=== PATIENT | female | born 1975 | race Two or more races ===

== ENCOUNTER 2020-12-20 08:00 | Outpatient (CLI) | payer OTHER ==
[2020-12-20] MEDS ORDERED: Birth control PO (15:23)
[2020-12-20] MEDS ORDERED: MULT-658 PO (15:23)
[2020-12-20] MEDS ORDERED: ALBU90AE INH (15:23)
== END 2020-12-20 23:59 | disposition home or self-care (01) ==
LOC: STAR 08:00
PROVIDERS: ATTEND Obstetrics & Gynecology
DX: Z01.812 Encounter for preprocedural laboratory examination (principal); Z20.822 Contact with and (suspected) exposure to COVID-19
CPT/HCPCS: 36415; 80053; 84703; 85025; 93005; U0003

== ENCOUNTER 2020-12-22 12:00 | Inpatient (IN) | payer OTHER ==
[2020-12-20 15:50] LABS: ALANINE AMINOTRANSFERASE 17 U/L (12-78); ALBUMIN 3.6 g/dL (3.4-5.0); ANION GAP 7 mmol/L (5-15); CALCIUM 9.3 mg/dL (8.5-10.1); CHLORIDE 109 mmol/L (98-107); CREATININE 0.62 mg/dL (0.55-1.02)
[2020-12-20 15:51] LABS: MEAN CORPUSCULAR HEMOGLOBIN 20.2 pg (27.0-34.8); MEAN CORPUSCULAR HGB CONC 30.5 g/dL (32.4-35.8); MEAN PLATELET VOLUME 7.7 fL (7.4-10.4); PLATELET COUNT 546 x10^3/uL (130-400); RED BLOOD COUNT 3.84 x10^6/uL (3.82-5.3); RED CELL DISTRIBUTION WIDTH 19.7 % (9.6-15.2)
[2020-12-20 15:54] LABS: ALKALINE PHOSPHATASE 54 U/L (45-117); BILIRUBIN,TOTAL 0.2 mg/dL (0.2-1.0); TOTAL PROTEIN 7.4 g/dL (6.4-8.2)
[2020-12-20 17:48] LABS: MD YES
[2020-12-20 17:51] LABS: BAND#(MANUAL) 0.09 x10^3/uL; BANDS%(MANUAL) 1 % (0-7); BASOS#(MANUAL) 0.09 x10^3/uL (0-0.1); BASOS% (MANUAL) 1 % (0-1); LYMPHS% (MANUAL) 29 % (22-44); MONOS#(MANUAL) 0.28 x10^3/uL (0.3-2.7); MONOS% (MANUAL) 3 % (2-9); SEG#(MANUAL) 6.14 x10^3/uL (1.8-6.8); SEGS% (MANUAL) 66 % (42-75)
[2020-12-20 17:52] LABS: ANISOCYTOSIS 1+; HYPOCHROMIA 2+; POLYCHROMASIA 1+
[2020-12-20 17:53] LABS: <PLATELET ESTIMATE> INCREASED; <PLT MORPHOLOGY> NORMAL PLT MORPH; MICROCYTOSIS 2+; OVALOCYTES 1+
[~2020-12-22] VITALS: Ht 157.5 cm; Wt 105.3 kg
[~2020-12-22 12:00] MED LIST: ALBU90AE INH; Birth control PO; MULT-658 PO
[2021-01-25 10:37] VITALS: BP 135/86
[2021-01-25] MEDS ORDERED: [UNRECOGNIZED DRUG - CODE] SQ (10:42)
[2021-01-25] MEDS ORDERED: FERR-46 PO (10:42)
[2021-01-25 10:43] LABS: HCG UR SG 1.024 (1.003-1.030)
[2021-01-25] MEDS ORDERED: LACTATED RINGERS 1,000 ML IV SCH (11:00)
[2021-01-25] MEDS ORDERED: CHLORHEXIDINE 15 ML UDC PO ONE (11:00)
[2021-01-25] MEDS ORDERED: FLUORESCEIN SODIUM 500 MG/5 ML ONE (11:55)
[2021-01-25] MEDS ORDERED: MIDAZOLAM 1 MG/ML, 2ML ONE (12:18)
[2021-01-25] MEDS ORDERED: FENTANYL PF 250 MCG/5ML ONE (12:18)
[2021-01-25] MEDS ORDERED: OXYcodone 5 MG/5 ML ORAL.SOL UDC PO PRN (13:00)
[2021-01-25] MEDS ORDERED: HYDROmorphone 1 MG/ML, 1ML INJ ONE ×3 (13:00→15:03)
[2021-01-25] MEDS ORDERED: ALBUTEROL SULFATE 2.5 MG/3 ML NPPB PRN (13:00)
[2021-01-25] MEDS ORDERED: hydrALAzine 20 MG/ML, 1ML IV PRN (13:00)
[2021-01-25] MEDS ORDERED: MEPERIDINE/PF 25MG/0.5ML IVPush PRN (13:00)
[2021-01-25] MEDS ORDERED: LABETALOL 5MG/ML, 20ML IV PRN (13:00)
[2021-01-25] MEDS ORDERED: LORazepam 2 MG/ML, 1ML IVPush PRN (13:00)
[2021-01-25] MEDS ORDERED: HALOPERIDOL 5 MG/ML IV PRN (13:00)
[2021-01-25] MEDS ORDERED: PROMETHAZINE 25 MG/ML, 1ML IVPush PRN (13:00)
[2021-01-25] MEDS ORDERED: PROMETHAZINE 25 MG SUPP PR PRN (13:00)
[2021-01-25] MEDS ORDERED: ACETAMINOPHEN 325 MG TABLET PO PRN ×3 (13:00→16:30)
[2021-01-25] MEDS ORDERED: ONDANSETRON 2MG/ML, 2ML IVPush PRN (13:00)
[2021-01-25] MEDS ORDERED: METHOCARBAMOL 1,000 MG in DEXTROSE 5% 100 ML IV PRN (13:00)
[2021-01-25] MEDS ORDERED: ROCURONIUM 10MG/ML,5ML ONE (13:17)
[2021-01-25] MEDS ORDERED: ONDANSETRON 2MG/ML, 2ML ONE (13:17)
[2021-01-25] MEDS ORDERED: CEFAZOLIN 1,000 MG ONE (13:17)
[2021-01-25] MEDS ORDERED: NEOSTIGMINE 1 MG/ML, 10ML ONE (13:17)
[2021-01-25] MEDS ORDERED: PROPOFOL 10 MG/ML, 20ML ONE (13:17)
[2021-01-25] MEDS ORDERED: SUCCINYLCHOLINE 20 MG/ML, 10ML ONE (13:17)
[2021-01-25] MEDS ORDERED: GLYCOPYRROLATE 0.2MG/1ML, 5ML ONE (13:17)
[2021-01-25] MEDS ORDERED: DEXAMETHASONE 4 MG/ML, 1ML ONE (13:17)
[2021-01-25] MEDS ORDERED: FENTANYL PF 100 MCG/2ML ONE (14:17)
[2021-01-25] MEDS: FENTANYL PF 100 MCG/2ML IV PRN ×3 (14:21→14:55)
[2021-01-25] MEDS ORDERED: OXYcodone 5 MG/5 ML ORAL.SOL UDC ONE (15:01)
[2021-01-25] MEDS: HYDROmorphone 1 MG/ML, 1ML INJ IVPush PRN ×2 (15:05→15:20)
[2021-01-25] MEDS ORDERED: ACETAMINOPHEN 650 MG SUPP PR PRN ×2 (16:30)
[2021-01-25] MEDS ORDERED: morphine SULFATE 10 MG/ML, 1ML IV PRN (16:30)
[2021-01-25] MEDS: D5%-LACTATED RINGERS 1,000 ML IV SCH (16:30)
[2021-01-25] MEDS ORDERED: ONDANSETRON 2MG/ML, 2ML IV PRN (16:30)
[2021-01-25] MEDS ORDERED: MEPERIDINE/PF 100 MG/ML IM PRN (16:30)
[2021-01-25] MEDS: OXYcodone/APAP 5/325MG TABLET PO PRN (16:37)
[2021-01-25 17:56] LABS: BASOPHILS % (AUTO) 0 % (0-1); EOSINOPHILS % (AUTO) 0 % (1-7); LYMPHOCYTES % (AUTO) 3 % (22-44); MEAN CORPUSCULAR HEMOGLOBIN 23.6 pg (27.0-34.8); MEAN CORPUSCULAR HGB CONC 31.8 g/dL (32.4-35.8); MEAN PLATELET VOLUME 8.6 fL (7.4-10.4); MONOCYTES % (AUTO) 1 % (2-9); NEUTROPHILS % (AUTO) 96 % (42-75); PLATELET COUNT 293 x10^3/uL (130-400); RED BLOOD COUNT 4.95 x10^6/uL (3.82-5.3); RED CELL DISTRIBUTION WIDTH 33.3 % (9.6-15.2)
[2021-01-25 18:06] LABS: TROPONIN I < 0.015 ng/mL (0.000-0.045)
[2021-01-25 18:39] LABS: ALANINE AMINOTRANSFERASE 25 U/L (12-78); ALBUMIN 3.9 g/dL (3.4-5.0); ANION GAP 9 mmol/L (5-15); CHLORIDE 108 mmol/L (98-107); CREATININE 0.62 mg/dL (0.55-1.02)
[2021-01-25 18:41] VITALS: BP 151/79
[2021-01-25 18:42] LABS: ALKALINE PHOSPHATASE 57 U/L (45-117); BILIRUBIN,TOTAL 0.3 mg/dL (0.2-1.0); TOTAL PROTEIN 7.3 g/dL (6.4-8.2)
[2021-01-25 18:59] LABS: MD SCAN
[2021-01-25] MEDS ORDERED: POTASSIUM CHLORIDE 20 MEQ TAB.ER.PRT PO ONE (19:00)
[2021-01-25] MEDS ORDERED: ALBUTEROL HFA 90 MCG/SPRAY INH PRN (19:00)
[2021-01-25] MEDS: SENNA/DOCUSATE TABLET PO SCH (21:00)
[2021-01-25] MEDS: DOCUSATE 100 MG CAPSULE PO SCH (21:00)
[2021-01-25] MEDS: SIMETHICONE 80 MG CHEW TAB PO SCH (21:05)
[2021-01-25] MEDS: IBUPROFEN 600 MG TABLET PO SCH (21:06)
[2021-01-25 21:54] LABS: MICROSCOPIC NOT IND
[2021-01-25] MEDS ORDERED: OMNIPAQUE 350 MG/ML, 75ML BOTTLE ONE (22:09)
[2021-01-26 00:07] VITALS: BP 128/75
[2021-01-26] MEDS: D5%-LACTATED RINGERS 1,000 ML IV SCH (00:31)
[2021-01-26 00:45] LABS: TROPONIN I < 0.015 ng/mL (0.000-0.045)
[2021-01-26] MEDS: OXYcodone/APAP 5/325MG TABLET PO PRN ×3 (01:20→21:17)
[2021-01-26 03:49] VITALS: BP 129/76
[2021-01-26] MEDS: IBUPROFEN 600 MG TABLET PO SCH ×4 (05:25→21:18)
[2021-01-26 06:23] LABS: BASOPHILS % (AUTO) 0 % (0-1); EOSINOPHILS % (AUTO) 0 % (1-7); LYMPHOCYTES % (AUTO) 8 % (22-44); MEAN CORPUSCULAR HEMOGLOBIN 23.7 pg (27.0-34.8); MEAN CORPUSCULAR HGB CONC 31.9 g/dL (32.4-35.8); MEAN PLATELET VOLUME 8.5 fL (7.4-10.4); MONOCYTES % (AUTO) 7 % (2-9); NEUTROPHILS % (AUTO) 85 % (42-75); PLATELET COUNT 316 x10^3/uL (130-400); RED CELL DISTRIBUTION WIDTH 33.3 % (9.6-15.2)
[2021-01-26 06:38] LABS: TROPONIN I < 0.015 ng/mL (0.000-0.045)
[2021-01-26 06:46] LABS: ALANINE AMINOTRANSFERASE 20 U/L (12-78); ALBUMIN 3.6 g/dL (3.4-5.0); ANION GAP 7 mmol/L (5-15); CALCIUM 9.9 mg/dL (8.5-10.1); CHLORIDE 110 mmol/L (98-107); CREATININE 0.68 mg/dL (0.55-1.02)
[2021-01-26 06:49] LABS: ALKALINE PHOSPHATASE 54 U/L (45-117); BILIRUBIN,TOTAL 0.3 mg/dL (0.2-1.0); TOTAL PROTEIN 7.1 g/dL (6.4-8.2)
[2021-01-26 06:51] LABS: MD MORPH REVIEW ONLY
[2021-01-26 06:54] LABS: ANISOCYTOSIS 2+
[2021-01-26 06:55] LABS: HYPOCHROMIA 1+; MICROCYTOSIS 1+; OVALOCYTES 1+
[2021-01-26 06:56] LABS: <PLATELET ESTIMATE> ADEQUATE; <PLT MORPHOLOGY> NORMAL PLT MORPH
[2021-01-26 07:03] VITALS: BP 116/69
[2021-01-26] MEDS: DOCUSATE 100 MG CAPSULE PO SCH ×2 (09:49→21:17)
[2021-01-26] MEDS: SIMETHICONE 80 MG CHEW TAB PO SCH ×3 (09:49→21:17)
[2021-01-26 19:27] VITALS: BP 126/68
[2021-01-26] MEDS: SENNA/DOCUSATE TABLET PO SCH (21:00)
[2021-01-27 00:05] VITALS: BP 117/72
[2021-01-27] MEDS: IBUPROFEN 600 MG TABLET PO SCH (05:25)
[2021-01-27 06:54] VITALS: BP 137/80
[2021-01-27] MEDS: SIMETHICONE 80 MG CHEW TAB PO SCH (07:59)
[2021-01-27] MEDS: OXYcodone/APAP 5/325MG TABLET PO PRN (07:59)
[2021-01-27] MEDS: DOCUSATE 100 MG CAPSULE PO SCH (08:00)
[2021-01-27] MEDS ORDERED: OXYC1TAB14 PO (09:31)
[2021-01-27] MEDS ORDERED: IBUP-1222 PO (09:32)
[2021-01-27] MEDS ORDERED: DOCU-131 PO (09:33)
== END 2021-01-27 10:21 | disposition home or self-care (01) | DRG 742 ==
LOC: ORIP 01-25 09:45 → 4NW 01-25 15:43 → DCLOUNGE 01-27 10:05
PROVIDERS: ADMIT Obstetrics & Gynecology; ATTEND Obstetrics & Gynecology
PROC: 0UB70ZZ Excision of Bilateral Fallopian Tubes, Open Approach (ICD-10-PCS; 2021-01-25)
PROC: 0T9B70Z Drainage of Bladder with Drainage Device, Via Natural or Artificial Opening (ICD-10-PCS; 2021-01-25)
PROC: 0UT90ZZ Resection of Uterus, Open Approach (ICD-10-PCS; principal; 2021-01-25 12:00)
DX: D25.9 Leiomyoma of uterus, unspecified (principal); J98.11 Atelectasis; D50.9 Iron deficiency anemia, unspecified; E78.5 Hyperlipidemia, unspecified; E87.6 Hypokalemia; Z20.822 Contact with and (suspected) exposure to COVID-19; J45.909 Unspecified asthma, uncomplicated; M06.9 Rheumatoid arthritis, unspecified; R07.89 Other chest pain; Z82.49 Family history of ischemic heart disease and other diseases of the circulatory system; I25.2 Old myocardial infarction; Z82.61 Family history of arthritis; Z98.891 History of uterine scar from previous surgery
CPT/HCPCS: 36415; J7121; 71275; 80053; 81003; 81025; 82728; 83540; 83550; 83735; 84484; 84703; 85025; 86850; 86900; 88307; 93005; G0378; J0690; J1100; J1170; J2250; J2405; J2704; J2710; J3010; Q9967; J0330; J2270; J2800; J7120; U0003

== ENCOUNTER 2021-01-20 15:47 | Outpatient (CLI) | payer OTHER ==
[2021-01-27] MEDS ORDERED: OXYC1TAB12 PO (09:31)
== END 2021-01-20 23:59 | disposition home or self-care (01) ==
LOC: STAR 15:47
PROVIDERS: ATTEND Obstetrics & Gynecology
DX: Z20.822 Contact with and (suspected) exposure to COVID-19 (principal)
CPT/HCPCS: U0003